=== PATIENT | female | born 1940 | race Caucasian/White ===

== ENCOUNTER 2019-12-18 11:39 | Outpatient (REF) | payer MEDICARE, BC, SELFPAY ==
[2019-12-18 22:06] LABS: Anion Gap 8.4 mmol/L (3-11); BUN 20 mg/dL (7-18); CO2 30.6 mmol/L (21.0-32.0); CREATININE 0.86 mg/dL (0.55-1.02); Calcium 9.4 mg/dL (8.5-10.1); Calculated LDL 215 mg/dL (<100); Chloride 105 mmol/L (98-107); Cholesterol 312 mg/dL (<200); Glucose 103 mg/dL (74-106); HDL Cholesterol 80 mg/dL (40-60); Potassium 4.7 mmol/L (3.5-5.1); Sodium 144 mmol/L (136-145); Triglyceride 89 mg/dL (<150)
== END 2019-12-18 11:59 ==
LOC: NCHCN 11:39
PROVIDERS: PCP Internal Medicine; Visit Provider Internal Medicine
DX: I10 Essential (primary) hypertension (principal); I48.0 Paroxysmal atrial fibrillation; K21.9 Gastro-esophageal reflux disease without esophagitis; D12.6 Benign neoplasm of colon, unspecified; Z13.220 Encounter for screening for lipoid disorders
CPT/HCPCS: 80048; 80061

== ENCOUNTER 2020-02-15 13:00 | Outpatient (REF) | payer MEDICARE, BC, SELFPAY ==
[2020-02-15 20:38] LABS: BUN 17 mg/dL (7-18); CREATININE 0.96 mg/dL (0.55-1.02); Calcium 9.6 mg/dL (8.5-10.1); Calculated LDL 116 mg/dL (<100); Chloride 100 mmol/L (98-107); Cholesterol 210 mg/dL (<200); Estimated GFR 56.21 (mL/min/1.73m2); Glucose 68 mg/dL (74-106); HDL Cholesterol 72 mg/dL (40-60); Potassium 3.3 mmol/L (3.5-5.1); Sodium 141 mmol/L (136-145); Triglyceride 111 mg/dL (<150)
== END 2020-02-15 13:20 ==
LOC: NCHCN 13:00
PROVIDERS: PCP Internal Medicine; Visit Provider Internal Medicine
DX: E78.5 Hyperlipidemia, unspecified (principal); I10 Essential (primary) hypertension
CPT/HCPCS: 80048; 80061

== ENCOUNTER 2020-02-29 14:00 | Outpatient (REF) | payer MEDICARE, BC, SELFPAY ==
[2020-02-29 20:18] LABS: Anion Gap 9.7 mmol/L (3-11); BUN 17 mg/dL (7-18); CO2 28.3 mmol/L (21.0-32.0); CREATININE 1.02 mg/dL (0.55-1.02); Calcium 8.8 mg/dL (8.5-10.1); Chloride 105 mmol/L (98-107); Estimated GFR 52.41 (mL/min/1.73m2); Glucose 110 mg/dL (74-106); Potassium 3.5 mmol/L (3.5-5.1); Sodium 143 mmol/L (136-145)
== END 2020-02-29 14:20 ==
LOC: NCHCN 14:00
PROVIDERS: PCP Internal Medicine; Visit Provider Internal Medicine
DX: I10 Essential (primary) hypertension (principal)
CPT/HCPCS: 80048

== ENCOUNTER 2020-04-18 11:32 | Outpatient (REF) | payer MEDICARE, BC, SELFPAY ==
[2020-04-18 20:39] LABS: Anion Gap 8.7 mmol/L (3-11); BUN 14 mg/dL (7-18); CO2 30.3 mmol/L (21.0-32.0); CREATININE 0.99 mg/dL (0.55-1.02); Calcium 9.1 mg/dL (8.5-10.1); Chloride 105 mmol/L (98-107); Estimated GFR 54.25 (mL/min/1.73m2); Glucose 87 mg/dL (74-106); Potassium 3.4 mmol/L (3.5-5.1); Sodium 144 mmol/L (136-145)
== END 2020-04-18 11:52 ==
LOC: NCHCN 11:32
PROVIDERS: PCP Internal Medicine; Visit Provider Nurse Practitioner Family
DX: E87.6 Hypokalemia (principal); E78.5 Hyperlipidemia, unspecified
CPT/HCPCS: 80048

== ENCOUNTER 2020-05-13 15:42 | Outpatient (REF) | payer MEDICARE, BC, SELFPAY ==
[2020-05-13 22:46] LABS: Anion Gap 10.3 mmol/L (3-11); CO2 27.7 mmol/L (21.0-32.0); Chloride 105 mmol/L (98-107); Magnesium 1.5 mg/dL (1.8-2.4); Potassium 4.5 mmol/L (3.5-5.1); Sodium 143 mmol/L (136-145)
== END 2020-05-13 16:02 ==
LOC: NCHCN 15:42
PROVIDERS: PCP Internal Medicine; Visit Provider Internal Medicine
DX: I48.0 Paroxysmal atrial fibrillation (principal); E87.6 Hypokalemia
CPT/HCPCS: 80051; 83735

== ENCOUNTER 2020-05-23 12:08 | Outpatient (REF) | payer MEDICARE, BC, SELFPAY ==
[2020-05-23 20:34] LABS: HCT 40.7 % (36.0-46.0); HGB 13.5 g/dL (11.2-15.7); MCH 29.9 pg (27.0-33.0); MCHC 33.2 % (32.0-36.0); MCV 90.2 fL (80-95); MPV 12.6 fL (8.0-11.0); Platelet Count 225 10^3/uL (130-400); RBC 4.51 10^6/uL (3.93-5.22); RDW 12.1 % (11.7-14.6); WBC 5.83 10^3/uL (4.4-10.8)
[2020-05-23 21:06] LABS: TSH (W/Ref FT4) 1.28 uIU/mL (0.36-3.74)
== END 2020-05-23 12:28 ==
LOC: NCHCN 12:08
PROVIDERS: PCP Internal Medicine; Visit Provider Internal Medicine
DX: R53.83 Other fatigue (principal)
CPT/HCPCS: 85027; 84443

== ENCOUNTER 2020-08-21 16:22 | Outpatient (REF) | payer MEDICARE, BC, SELFPAY ==
[2020-08-21 22:14] LABS: Magnesium 1.9 mg/dL (1.8-2.4)
== END 2020-08-21 16:42 ==
LOC: NCHCN 16:22
PROVIDERS: PCP Internal Medicine; Visit Provider Internal Medicine
DX: R53.83 Other fatigue (principal); E78.5 Hyperlipidemia, unspecified; I48.0 Paroxysmal atrial fibrillation
CPT/HCPCS: 83735

== ENCOUNTER 2020-08-28 14:00 | Outpatient (REF) | payer MEDICARE, BC, SELFPAY ==
[2020-08-28 22:13] LABS: Anion Gap 6.6 mmol/L (3-11); BUN 25 mg/dL (7-18); CO2 29.4 mmol/L (21.0-32.0); CREATININE 0.99 mg/dL (0.55-1.02); Calcium 9.4 mg/dL (8.5-10.1); Chloride 104 mmol/L (98-107); Estimated GFR 54.25 (mL/min/1.73m2); Glucose 107 mg/dL (74-106); Potassium 4.3 mmol/L (3.5-5.1); Sodium 140 mmol/L (136-145)
== END 2020-08-28 14:20 ==
LOC: NCHCN 14:00
PROVIDERS: PCP Internal Medicine; Visit Provider Nurse Practitioner Family
DX: Z78.9 Other specified health status (principal); I10 Essential (primary) hypertension
CPT/HCPCS: 80048

== ENCOUNTER 2021-12-15 15:19 | Outpatient (REF) | payer MEDICARE, SELFPAY ==
[2021-12-15 16:52] LABS: Anion Gap 6.6 mmol/L (3-11); BUN 16 mg/dL (7-18); CO2 29.4 mmol/L (21.0-32.0); CREATININE 0.9 mg/dL (0.55-1.02); Calcium 8.9 mg/dL (8.5-10.1); Calculated LDL 95 mg/dL (<100); Chloride 105 mmol/L (98-107); Cholesterol 182 mg/dL (<200); Glucose 115 mg/dL (74-106); HDL Cholesterol 70 mg/dL (40-60); Sodium 141 mmol/L (136-145); Triglyceride 85 mg/dL (<150)
== END 2021-12-15 15:20 | disposition home or self-care (01) ==
LOC: NCHCN 15:19
PROVIDERS: PCP Internal Medicine; Visit Provider Internal Medicine
DX: I10 Essential (primary) hypertension (principal); I48.0 Paroxysmal atrial fibrillation; Z78.9 Other specified health status
CPT/HCPCS: 80048; 80061; 85025

== ENCOUNTER 2022-12-28 12:35 | Outpatient (REF) | payer MEDICARE, SELFPAY ==
[2022-12-28 15:21] LABS: HCT 41.6 % (36.0-46.0); HGB 13.1 g/dL (11.2-15.7); MCH 30.3 pg (27.0-33.0); MCHC 31.5 % (32.0-36.0); MCV 96 fL (80-95); MPV 11.2 fL (8.0-11.0); Platelet Count 236 10^3/uL (130-400); RBC 4.33 10^6/uL (3.93-5.22); RDW-SD 42.5 fL; WBC 7.74 10^3/uL (4.4-10.8)
[2022-12-28 16:30] LABS: ALT 22 U/L (14-59); AST 36 U/L (15-37); Albumin 3.5 g/dL (3.4-5.0); Alkaline Phosphatase 66 U/L (46-116); Anion Gap 8.1 mmol/L (3-11); BUN 21 mg/dL (7-18); Bilirubin, Total 0.5 mg/dL (0.2-1.0); CO2 28.9 mmol/L (21.0-32.0); Calcium 9.5 mg/dL (8.5-10.1); Chloride 105 mmol/L (98-107); Estimated GFR 56.95 (mL/min/1.73m2); Glucose 116 mg/dL (74-106); Sodium 142 mmol/L (136-145); Total Protein 7.1 g/dL (6.4-8.2)
== END 2022-12-28 12:36 | disposition home or self-care (01) ==
LOC: NCHCN 12:35
PROVIDERS: PCP Internal Medicine; Visit Provider Internal Medicine
DX: I10 Essential (primary) hypertension (principal); I48.0 Paroxysmal atrial fibrillation
CPT/HCPCS: 80053; 85027

== ENCOUNTER 2023-03-29 12:32 | Outpatient (REF) | payer MEDICARE, SELFPAY ==
[2023-03-29 15:40] LABS: Abs Immature Grans 0.03 10^3/uL (0.0-0.06); Absolute Basophil Count 0.07 10^3/uL (0.0-0.2); Absolute Eosinophil Count 0.14 10^3/uL (0.0-0.7); Absolute Lymphocyte Count 1.89 10^3/uL (1.2-3.4); Absolute Monocyte Count 0.35 10^3/uL (0.1-0.8); Absolute Neutrophil Count 4.73 10^3/uL (1.2-6.7); Eosinophils % 1.9; HCT 40.6 % (36.0-46.0); HGB 13.5 g/dL (11.2-15.7); Immature Grans % 0.4; Lymphocytes % 26.2; MCH 31.2 pg (27.0-33.0); MCHC 33.3 % (32.0-36.0); MCV 94 fL (80-95); MPV 11.2 fL (8.0-11.0); Monocytes % 4.9; Neutrophils % 65.6; Platelet Count 260 10^3/uL (130-400); RBC 4.33 10^6/uL (3.93-5.22); RDW 12.1 % (11.7-14.6); RDW-SD 42.3 fL; WBC 7.21 10^3/uL (4.4-10.8)
[2023-03-29 16:14] LABS: Folate > 20.0 ng/mL (8.6-20.0); Vitamin B12 892 pg/mL (193-986)
== END 2023-03-29 12:33 | disposition home or self-care (01) ==
LOC: NCHCN 12:32
PROVIDERS: PCP Internal Medicine; Visit Provider Internal Medicine
DX: D75.89 Other specified diseases of blood and blood-forming organs (principal); Z79.899 Other long term (current) drug therapy
CPT/HCPCS: 82607; 82746; 85025

== ENCOUNTER 2023-12-27 11:10 | Outpatient (REF) | payer MEDICARE, SELFPAY ==
[2023-12-27 14:52] LABS: HCT 46.1 % (36.0-46.0); HGB 14.9 g/dL (11.2-15.7); MCH 29.7 pg (27.0-33.0); MCHC 32.3 % (32.0-36.0); MCV 92 fL (80-95); Platelet Count 267 10^3/uL (130-400); RBC 5.01 10^6/uL (3.93-5.22); RDW 12.1 % (11.7-14.6); RDW-SD 41.2 fL; WBC 5.98 10^3/uL (4.4-10.8)
[2023-12-27 16:07] LABS: Anion Gap 11.2 mmol/L (3-11); BUN 18 mg/dL (7-18); CO2 26.8 mmol/L (21.0-32.0); CREATININE 1.1 mg/dL (0.55-1.02); Calcium 9.6 mg/dL (8.5-10.1); Chloride 105 mmol/L (98-107); Estimated GFR 50.48 (mL/min/1.73m2); Glucose 155 mg/dL (74-106); Potassium 4.1 mmol/L (3.5-5.1); Sodium 143 mmol/L (136-145)
== END 2023-12-27 11:11 | disposition home or self-care (01) ==
LOC: NCHCN 11:10
PROVIDERS: PCP Internal Medicine; Visit Provider Internal Medicine
DX: I48.0 Paroxysmal atrial fibrillation (principal); I10 Essential (primary) hypertension
CPT/HCPCS: 80048; 85027

== ENCOUNTER 2024-06-28 08:09 | Outpatient (REF) | payer MEDICARE, SELFPAY ==
[2024-06-28 14:46] LABS: HCT 43.2 % (36.0-46.0); MCH 30.6 pg (27.0-33.0); MCHC 32.4 % (32.0-36.0); MCV 94 fL (80-95); MPV 11.1 fL (8.0-11.0); Platelet Count 246 10^3/uL (130-400); RBC 4.58 10^6/uL (3.93-5.22); RDW 12.2 % (11.7-14.6); RDW-SD 42.5 fL; WBC 6.19 10^3/uL (4.4-10.8)
[2024-06-28 15:23] LABS: ALT 27 U/L (14-59); AST 31 U/L (15-37); Alkaline Phosphatase 62 U/L (46-116); Anion Gap 8.4 mmol/L (3-11); BUN 19 mg/dL (7-18); Bilirubin, Total 0.52 mg/dL (0.2-1.0); CO2 28.6 mmol/L (21.0-32.0); CREATININE 0.9 mg/dL (0.55-1.02); Calcium 9.3 mg/dL (8.5-10.1); Chloride 105 mmol/L (98-107); Estimated GFR 63.83 (mL/min/1.73m2); Glucose 113 mg/dL (74-106); Potassium 3.9 mmol/L (3.5-5.1); Sodium 142 mmol/L (136-145); Total Protein 7.8 g/dL (6.4-8.2)
[2024-06-28 16:13] LABS: Vitamin D 25 Total 47.2 ng/mL (30-100)
== END 2024-06-28 08:10 | disposition home or self-care (01) ==
LOC: NCHCN 08:09
PROVIDERS: PCP Internal Medicine; Visit Provider Internal Medicine
DX: I10 Essential (primary) hypertension (principal); M85.88 Other specified disorders of bone density and structure, other site; I48.0 Paroxysmal atrial fibrillation
CPT/HCPCS: 80053; 82306; 85027

== ENCOUNTER 2025-09-28 11:53 | Outpatient (REF) | payer MEDICARE, SELFPAY ==
[2025-09-28 15:41] LABS: HCT 41.9 % (36.0-46.0); HGB 13.8 g/dL (11.2-15.7); MCH 31.1 pg (27.0-33.0); MCHC 32.9 % (32.0-36.0); MCV 94 fL (80-95); MPV 12.1 fL (8.0-11.0); Platelet Count 222 10^3/uL (130-400); RBC 4.44 10^6/uL (3.93-5.22); RDW 11.9 % (11.7-14.6); RDW-SD 41.6 fL; WBC 4.18 10^3/uL (4.4-10.8)
[2025-09-28 16:01] LABS: Anion Gap 10.4 mmol/L (3-11); BUN 16 mg/dL (9-23); CO2 29.6 mmol/L (20.0-31.0); Calcium 9.7 mg/dL (8.3-10.6); Chloride 107 mmol/L (98-107); Cholesterol 167 mg/dL (<200); Glucose 100 mg/dL (74-106); HDL Cholesterol 72 mg/dL (>40); Potassium 3.7 mmol/L (3.5-5.1); Sodium 147 mmol/L (136-145)
[2025-09-28 16:13] LABS: Hemoglobin A1C 5.7 % (<5.7)
== END 2025-09-28 11:54 | disposition home or self-care (01) ==
LOC: NCHCN 11:53
PROVIDERS: PCP Internal Medicine; Visit Provider Internal Medicine
DX: I48.0 Paroxysmal atrial fibrillation (principal); E78.5 Hyperlipidemia, unspecified; R73.01 Impaired fasting glucose; I10 Essential (primary) hypertension
CPT/HCPCS: 80048; 80061; 85027; 83036